=== PATIENT | female | born 1980 | race Caucasian/White ===

== ENCOUNTER 2016-10-09 05:31 | Day surgery (SDC) | payer OTHER ==
[~2016-10-09] VITALS: Ht 162.6 cm; Wt 86.6 kg
[~2016-10-09 05:31] MED LIST: LEVO75TA5 PO; MURENA; ONDA4TAB7 PO; PANT20TA2 PO
[2016-10-09] MEDS ORDERED: DOCU-30 PO (06:06)
[2016-10-09 06:07] VITALS: BP 109/75
[2016-10-09] MEDS ORDERED: LACTATED RINGERS 1,000 ML IV SCH (06:07)
[2016-10-09] MEDS ORDERED: MIDAZOLAM 1 MG/ML, 2ML ONE (07:17)
[2016-10-09 07:25] LABS: HCG UR OBC PASS
[2016-10-09] MEDS ORDERED: LABETALOL 5MG/ML, 20ML IV PRN (08:00)
[2016-10-09] MEDS ORDERED: MIDAZOLAM 1 MG/ML, 2ML IV PRN (08:00)
[2016-10-09] MEDS ORDERED: PROMETHAZINE 25 MG/ML, 1ML IV PRN (08:00)
[2016-10-09] MEDS ORDERED: ACETAMINOPHEN 325 MG TABLET PO PRN (08:00)
[2016-10-09] MEDS ORDERED: OXYcodone 5 MG/5 ML ORAL.SOL UDC PO PRN (08:00)
[2016-10-09] MEDS ORDERED: ONDANSETRON 2MG/ML, 2ML IVPush PRN (08:00)
[2016-10-09] MEDS ORDERED: FENTANYL PF 100 MCG/2ML IV PRN (08:00)
[2016-10-09] MEDS ORDERED: hydrALAzine 20 MG/ML, 1ML IV PRN (08:00)
[2016-10-09] MEDS ORDERED: HYDROmorphone 1 MG/ML, 1ML IV PRN (08:00)
[2016-10-09] MEDS ORDERED: MEPERIDINE/PF 25MG/0.5ML IVPush PRN (08:00)
[2016-10-09] MEDS ORDERED: METOCLOPRAMIDE 5 MG/ML, 2ML IV PRN (08:00)
[2016-10-09] MEDS ORDERED: PROMETHAZINE 25 MG/ML, 1ML ONE (08:13)
[2016-10-09] MEDS ORDERED: ONDANSETRON 2MG/ML, 2ML ONE (10:58)
[2016-10-09] MEDS ORDERED: PROPOFOL 10 MG/ML, 20ML ONE (10:58)
== END 2016-10-09 09:08 ==
LOC: OUT 05:31
PROVIDERS: ATTEND Internal Medicine Gastroenterology
DX: K29.50 Unspecified chronic gastritis without bleeding (principal); K21.9 Gastro-esophageal reflux disease without esophagitis; K44.9 Diaphragmatic hernia without obstruction or gangrene; E03.9 Hypothyroidism, unspecified; Z90.49 Acquired absence of other specified parts of digestive tract
CPT/HCPCS: 43239; 81025; 88305; J2250; J2405; J2550; J2704; J7120